=== PATIENT | female | born 1960 | race Caucasian/White ===

== ENCOUNTER → 2019-11-12 11:02 | Outpatient (BNVA) | payer MEDICARE, BC, SELFPAY | PROVIDERS: Family Provider Nurse Practitioner Family; PCP Nurse Practitioner Family; Visit Provider Internal Medicine Rheumatology | DX: Z79.899 Other long term (current) drug therapy (principal); Z11.59 Encounter for screening for other viral diseases; Z11.1 Encounter for screening for respiratory tuberculosis; Z72.89 Other problems related to lifestyle | CPT/HCPCS: 36415; 80076; 82565; 85025; 85651; 86140; 86480; 86704; 86803; 87340 ==

== ENCOUNTER → 2019-11-19 13:10 | Outpatient (BNVA) | payer MEDICARE, BC, SELFPAY | PROVIDERS: Family Provider Nurse Practitioner Family; PCP Nurse Practitioner Family; Visit Provider Internal Medicine Rheumatology | DX: M79.7 Fibromyalgia (principal); M46.90 Unspecified inflammatory spondylopathy, site unspecified; M46.1 Sacroiliitis, not elsewhere classified; Z71.89 Other specified counseling; Z79.899 Other long term (current) drug therapy | CPT/HCPCS: 99214 ==

== ENCOUNTER → 2021-08-31 11:30 | Outpatient (BNVA) | payer MEDICARE, BC, SELFPAY | PROVIDERS: Family Provider Nurse Practitioner Family; PCP Nurse Practitioner Family; Visit Provider Internal Medicine | DX: R00.2 Palpitations (principal); I48.91 Unspecified atrial fibrillation; I49.3 Ventricular premature depolarization | CPT/HCPCS: 93225 ==

== ENCOUNTER → 2022-05-22 09:18 | Outpatient (BNVA) | payer MEDICARE, BC, SELFPAY | PROVIDERS: Family Provider Nurse Practitioner Family; PCP Nurse Practitioner Family; Visit Provider Nurse Practitioner Family | DX: E78.5 Hyperlipidemia, unspecified (principal); I10 Essential (primary) hypertension; Z79.01 Long term (current) use of anticoagulants | CPT/HCPCS: 80053; 80061; 85025 ==

== ENCOUNTER → 2022-08-15 14:24 | Outpatient (BNVA) | payer MEDICARE, BC, SELFPAY | PROVIDERS: Family Provider Nurse Practitioner Family; PCP Nurse Practitioner Family; Visit Provider Nurse Practitioner Family | DX: R39.9 Unspecified symptoms and signs involving the genitourinary system (principal) | CPT/HCPCS: 81000; 87086 ==

== ENCOUNTER 2023-01-25 09:37 | Outpatient (CLI) | payer MEDICARE, BC, SELFPAY ==
--- NOTE | 2023-01-25 09:47 | XR_ITS ---
WS: [id number] XR cervical spine 3V* [id number] REASON FOR EXAM: M54.2 - Cervicalgia FINDINGS: Relatively normal cervical curvatures. Normal odontoid. Normal cervical vertebral bodies. Intervertebral disc spaces are intact and relatively well preserved. No significant listhesis. Mild degenerative changes in the facet joints C3-C7. IMPRESSION: Mild degenerative spondylosis of the cervical spine. Incidentally noted are calcified plaques in both internal carotids, most notably the left.
--- NOTE | 2023-01-25 09:47 | XR_ITS ---
WS: [id number] XR shoulder RT min 2V* [id number] REASON FOR EXAM: M25.511 - Pain in right shoulder FINDINGS: No fracture or focal bone lesion. Significant narrowing of the acromioclavicular joint with mild subchondral sclerosis and osteophytosi s. Glenohumeral joint space is not well demonstrated on this examination. There is some laxity with mild inferior subluxation of the humeral head in relation to the glenoid. No soft tissue abnormality. IMPRESSION: Moderate osteoarthritis of the acromioclavicular joint. Laxity in the glenohumeral joint as above.
== END 2023-01-25 09:38 | disposition home or self-care (01) ==
PROVIDERS: PCP Nurse Practitioner Family; Visit Provider Nurse Practitioner Family
DX: M19.011 Primary osteoarthritis, right shoulder (principal); M47.892 Other spondylosis, cervical region
CPT/HCPCS: 72040; 73030

== ENCOUNTER 2023-02-06 15:30 | Outpatient (CLI) | payer MEDICARE, BC, SELFPAY ==
--- NOTE | 2023-02-06 16:00 | MR_ITS ---
WS: [id number] MRI RIGHT SHOULDER HISTORY: M25.511 - Pain in right shoulder COMPARISON: Radiograph 01/25/2023 TECHNIQUE: Multiplanar sequences of the shoulder joint are submitted. Mild to moderate AC joint arthritis. Joint space is narrowed with osteophytes. Very mild encroachment upon the supraspinatus. No subacromial impingement. There is a very tiny amount of fluid in the suba cromial bursa. Biceps tendon is not identified in the bicipital groove. No os acromion. No rotator cuff muscle atrophy or edema. Increased T2 signal in the insertion of the infraspinatus te ndon. Otherwise no tendon tears or significant tendinopathy. No labral tear. No joint effusion. IMPRESSION: 1. Very small insertion site tear infraspinatus tendon without retraction. 2. Mild to moderate AC joint arthritis. 3. Biceps tendon is not identified in the bicipital groove. Torn or subluxed biceps tendon should be considered. 4. No labral tear.
== END 2023-02-06 15:31 | disposition home or self-care (01) ==
LOC: RAD 15:30
PROVIDERS: PCP Nurse Practitioner Family; Visit Provider Nurse Practitioner Family
DX: S46.811A Strain of other muscles, fascia and tendons at shoulder and upper arm level, right arm, initial encounter (principal); X58.XXXA Exposure to other specified factors, initial encounter; M19.011 Primary osteoarthritis, right shoulder; G89.29 Other chronic pain
CPT/HCPCS: 73221

== ENCOUNTER → 2023-02-07 13:15 | Outpatient (BNVA) | payer MEDICARE, BC, SELFPAY | PROVIDERS: PCP Nurse Practitioner Family; Visit Provider Nurse Practitioner Family | DX: L57.0 Actinic keratosis (principal); S10.86XA Insect bite of other specified part of neck, initial encounter; L82.1 Other seborrheic keratosis; D22.5 Melanocytic nevi of trunk; L57.8 Other skin changes due to chronic exposure to nonionizing radiation; X58.XXXA Exposure to other specified factors, initial encounter | CPT/HCPCS: 17000; 99213 ==

== ENCOUNTER 2023-02-27 10:09 | Outpatient (CLI) | payer MEDICARE, BC, SELFPAY ==
--- NOTE | 2023-02-27 10:15 | USCV_ITS ---
Otoniel Keri Age: 62 Gender: F : 1960 Exam Date: 02/27/2023 10:20 Ordering Phys: Cielo CoyleP Technologist: CT Exam Location: [facility] [place] Indication: stenosis Risk Factors: Previous Vascular Surgery: Right Brachial BP: / Left Brachial BP: / Right Left Velocity (cm/s) Spectral Plaque Velocity (cm/s) Spectral Plaque Syst/Diast Broadening Syst/Diast Broadening 81.50/ 17.00 Prox CCA 72.00 / 16.00 76.40/ 21.50 Mid CCA 66.10 / 20.40 59.90/ 20.80 Distal CCA 60.60 / 22.40 46.40/ 14.80 Prox ICA 59.60 / 19.60 52.90/ 17.20 Mid ICA 65.20 / 19.70 60.40/ 20.70 Distal ICA 60.70 / 26.50 83.90 ECA 97.10 0.74 ICA/CCA 0.91 Antegrade Vertebral Antegrade 39.30/ 12.80 cm/s 30.50/ 12.80 cm/s Tri Subclavian Tri 113.1 162.0 0 0 FINDINGS Comparison: none available. No significant elevation of systolic or diastolic velocities. Waveforms are normal. Minimal amount of calcified plaque identified. CONCLUSIONS Bilateral ICA stenosis less than 50%. No stenosis, mild plaque. Dr. Lachelle Ramos DO (Electronically Signed) Final Date: 28 February 2023 08:52 S
== END 2023-02-27 10:10 | disposition home or self-care (01) ==
LOC: RAD 10:09
PROVIDERS: PCP Nurse Practitioner Family; Visit Provider Nurse Practitioner Family
DX: R09.89 Other specified symptoms and signs involving the circulatory and respiratory systems (principal); I65.23 Occlusion and stenosis of bilateral carotid arteries
CPT/HCPCS: 93880

== ENCOUNTER → 2023-07-24 15:23 | Outpatient (BNVA) | payer MEDICARE, BC, SELFPAY | PROVIDERS: PCP Nurse Practitioner Family; Visit Provider Nurse Practitioner Family | DX: R30.0 Dysuria (principal); N39.0 Urinary tract infection, site not specified | CPT/HCPCS: 81000; 87077; 87086; 87184 ==

== ENCOUNTER → 2023-08-13 09:51 | Outpatient (BNVA) | payer MEDICARE, BC, SELFPAY | PROVIDERS: PCP Nurse Practitioner Family; Visit Provider Nurse Practitioner Family | DX: N39.0 Urinary tract infection, site not specified (principal) | CPT/HCPCS: 87086 ==

== ENCOUNTER → 2024-02-25 11:22 | Outpatient (BNVA) | payer MEDICARE, BC, SELFPAY | PROVIDERS: PCP Nurse Practitioner Family; Visit Provider Nurse Practitioner Family | DX: L81.5 Leukoderma, not elsewhere classified (principal); D48.5 Neoplasm of uncertain behavior of skin; L57.0 Actinic keratosis; L82.1 Other seborrheic keratosis; D22.5 Melanocytic nevi of trunk; L81.4 Other melanin hyperpigmentation; F17.200 Nicotine dependence, unspecified, uncomplicated | CPT/HCPCS: 11102; 17000; 99213 ==

== ENCOUNTER → 2024-03-19 13:26 | Outpatient (BNVA) | payer MEDICARE, BC, SELFPAY | PROVIDERS: PCP Nurse Practitioner Family; Visit Provider Dermatology | DX: C44.529 Squamous cell carcinoma of skin of other part of trunk (principal) | CPT/HCPCS: 11602; 13101 ==

== ENCOUNTER → 2024-07-08 15:36 | Outpatient (BNVA) | payer MEDICARE, BC, SELFPAY | PROVIDERS: PCP Nurse Practitioner Family; Visit Provider Nurse Practitioner Family | DX: N39.0 Urinary tract infection, site not specified (principal) | CPT/HCPCS: 81000; 87086 ==

== ENCOUNTER → 2024-07-21 09:24 | Outpatient (BNVA) | payer MEDICARE, BC, SELFPAY | PROVIDERS: PCP Nurse Practitioner Family; Visit Provider Nurse Practitioner Family | DX: I10 Essential (primary) hypertension (principal) | CPT/HCPCS: 80053; 80061 ==

== ENCOUNTER → 2025-02-24 11:46 | Outpatient (BNVA) | payer MEDICARE, BC, SELFPAY | PROVIDERS: PCP Nurse Practitioner Family; Visit Provider Nurse Practitioner Family | DX: L28.1 Prurigo nodularis (principal); L81.5 Leukoderma, not elsewhere classified; Z08 Encounter for follow-up examination after completed treatment for malignant neoplasm; Z85.828 Personal history of other malignant neoplasm of skin; L82.0 Inflamed seborrheic keratosis; L53.8 Other specified erythematous conditions; R20.8 Other disturbances of skin sensation; L57.0 Actinic keratosis | CPT/HCPCS: 17000; 17110; 99213 ==